=== PATIENT | male | born 1985 | race Asian ===

== ENCOUNTER 2017-07-19 03:03 | Emergency (ER) | payer OTHER ==
[~2017-07-19] VITALS: Ht 177.8 cm; Wt 68.0 kg
[2017-07-19 03:05] VITALS: BP_SYST 128
[2017-07-19 03:20] VITALS: BP_SYST 128
== END 2017-07-19 03:15 ==
LOC: SED 03:03
DX: Z02.89 Encounter for other administrative examinations (principal)
CPT/HCPCS: J7030